=== PATIENT | male | born 1990 | race Caucasian/White ===

== ENCOUNTER 2024-12-13 13:56 | Emergency (ER) | payer OTHER, SELFPAY ==
[2024-12-13 14:06] VITALS: BP 144/94; PULSE 102; RESP 16; TEMP 36.8; O2SAT 98; BMI 26.4
--- OUTSIDE RECORDS SUMMARY | 2024-12-13 14:06 | XMS_ITS | Clinical Summary ---
Author Organization [facility] Address [address] [facility] Attn: Epic Prelude ADT AKIRA WOMACK [address] Care Team Providers Care Drum Builder Name Role Phone Alex Wick MD Primary Care Provider [phone] Allergies Active Allergy Reactions Criticality Noted Date Comments Penicillins Rash Low 09/28/2024 Medications propranoloL (INDERAL) 10 mg tablet Take 1 Tablet by mouth 3 times daily. 07/02/19 25 Active dextroamphetamine -amphetamine (ADDERALL) 15 mg tabletIndications :Attention deficit hyperactivity disorder (ADHD), combined type Take 1 Tablet (15 mg) by mouth daily. Max Daily Amount: 15 mg 28 Tablet 12/08/19 25 Active dextroamphetamine -amphetamine (ADDERALL) 15 mg tabletIndications :Attention deficit hyperactivity disorder (ADHD), combined type Take 1 Tablet (15 mg) by mouth daily. Max Daily Amount: 15 mg 28 Tablet 01/05/20 25 Active dextroamphetamine -amphetamine (ADDERALL) 15 mg tabletIndications :Attention deficit hyperactivity disorder (ADHD), combined type Take 1 Tablet (15 mg) by mouth daily. Max Daily Amount: 15 mg 28 Tablet 02/02/20 25 Active escitalopram oxalate (LEXAPRO) 20 mg tabletIndications :Moderate episode of recurrent major depressive disorder (CMS/HCC) Take 1 Tablet (20 mg) by mouth daily. 30 Tablet 2 12/01/19 25 Active escitalopram oxalate (LEXAPRO) 10 mg tabletIndications :Moderate episode of recurrent major depressive disorder (CMS/HCC) Take 1 Tablet (10 mg) by mouth daily. 30 Tablet 1 09/30/19 25 025 Discontinued methylphenidate ER 18 mg tablet,extended release 24 hrIndications:Att ention deficit hyperactivity disorder (ADHD), combined type Take 1 Tablet (18 mg) by mouth daily in the morning. Max Daily Amount: 18 mg 30 Tablet 11/03/19 25 025 Discontinued Active Problems Problem Noted Date Diagnosed Date CRYSTAL (generalized anxiety disorder) 11/30/2024 Attention deficit hyperactiv ity disorder (ADHD), combined type 09/28/2024 Moderate episode of recurrent major depressive d isorder 09/28/2024 Encounters Date Type Department Care Team Description 11/30/2024 11:20 AM CDT Office Visit [address] [phone] Alex Wick MD Attention deficit hyperactivity disorder (ADHD), combined type (Primary Dx); Moderate episode of recurrent major depressive disorder (CMS/HCC); CRYSTAL (generalized anxiety disorder) 11/24/2024 External Device Data [facility] ABSTRACTION Provider, Abstract 11/02/[address] [phone] Alex Wick MD Attention deficit hyperactivity disorder (ADHD), combined type 10/14/2024 External Device Data [facility] ABSTRACTION Provider, Abstract 10/13/2024 External Device Data [facility] ABSTRACTION Provider, Abstract 09/30/2024 Results Follow-Up [address] [phone] Sendy Harden FNP CBC WITH DIFFERENTIAL, COMPREHENSIVE METABOLIC PANEL, TSH, Additional followed-up results: 2 09/29/2024 External Device Data [facility] ABSTRACTION Provider, Abstract 09/29/2024 External Device Data [facility] ABSTRACTION Provider, Abstract 09/29/2024 External Device Data [facility] ABSTRACTION Provider, Abstract 09/28/2024 10:20 AM CDT Office Visit [address] [phone] Sendy Harden FNP Attention deficit hyperactivity disorder (ADHD), combined type (Primary Dx); Moderate episode of recurrent major depressive disorder (CMS/HCC); Influenza vaccination declined; Other fatigue 09/28/[address] [place] [address] Sendy Harden, MANAGER OF HOSPITAL Attention deficit hyperactivity disorder (ADHD), combined type (Primary Dx); Moderate episode of recurrent major depressive disorder (CMS/HCC) from Last 3 Months Immunizations Immunization Administration Dates Next Due (M-M-R II/PRIORIX)(12 MO UP) MEASLES, MUMPS AND RUBELLA VIRUS VACCINE, 0.5 ML IM/SUBCUT 08/06/1996,12/01/1992 (PNEUMOVAX 23)(50 YRS UP) PN EUMOCOCCAL POLYSACCHARIDE (PPV23) 0.5 ML, IM 08/07/2001 Dt Dtp Dtap Vaccine 08/06/1996, 3,02/04/1992,12/02,1991 HIB, Unspecified Formulation 12/01/1992, 02/04/1992,1991,09/02 Hepatitis B Vaccine 10/03/1995,03/07/1995,1994 IPV/OPV 08/06/1996, 3,1991,09/02 Family History Medical History Relation Name Comments Melanoma Father Other Mother Relation Name Status Comments Father Alive Mother Alive Social History Tobacco Use Types Packs/Day Years Used Date Smoking Tobacco: Never Smokeless Tobacco: Current Chew Tobacco Cessation:Ready to Q uit: Not Asked; Counseling Given: Not Answered Alcohol Use Standard Drinks/Week Comments Yes 10 (1 standard drink = 0.6 oz pu re alcohol) Sex and Gender Information Value Date Recorded Sex Assigned at Not on file Legal Sex Male 12:35 PM CHARGE WEIGHER Gender Identity Not on file Sexual Orientation Not on file Last Filed Vital Signs Vital Sign Reading Time Taken Comments Blood Pressure 124/86 11/30/2024 11:26 AM CDT Pulse 126 11/30/2024 11:26 AM CDT Temperature 36.2 C (97.1 F) 11/30/2024 11:26 AM CDT Respiratory Rate 14 11/30/2024 11:26 AM CDT Oxygen Saturation 96% 11/30/2024 11:26 AM CDT Inhaled Oxygen Concentration - - Weight 89.5 kg (197 lb 6.4 oz) 11/30/2024 11:26 AM CDT Height 181.6 cm (5' 11.5 ) 11/30/2024 11:26 AM C DT Body Mass Index 27.15 11/30/2024 11:26 AM CDT Plan of Treatment Upcoming Encounters Date Type Department Care Team (Late st Contact Info) Description 03/02/2025 9:40 AM CDT Office Visit [address] [phone] Sendy Harden, [facility] [address] [place] [phone] 06/07/2025 1:00 PM CHARGE WEIGHER Office Visit [facility] [address] [phone] Sendy Harden, [facility] [address] [place] [phone] Health Maintenance Due Date Last Done Comments DTAP/TDAP/TD VACCINES (6 - Tdap) 2002 08/06/1996, 12/01/1992, 02/04/1992, Additional history exists HPV VACCINES (1 - Male 3-dos e series) 2006 Preventative Visit- Commercial 05/27/2024 INFLUENZA VACCINE (#1) 2024 09/28/2024 HEPATITIS B VACCINES Completed 10/03/1995, 03/07/1995, 01/24/1995 Procedures Procedure Name Priority Date/Time Associated Diagnosis Comments IRON, TIBC, AND PERCENT SATURATION Routine 09/28/2024 11:15 AM CDT Other fatigue TESTOSTERONE FREE AND TOTAL Routine 09/28/2024 11:15 AM CDT Other fatigue TSH Routine 09/28/2024 11:15 AM CDT Moderate episode of recurrent major depressive disorder (CMS/HCC) Other fatigue COMPREHENSIVE METABOLIC PANEL Routine 09/28/2024 11:15 AM CDT Moderate episode of recurrent major depressive disorder (CMS/HCC) CBC WITH DIFFERENTIAL Routine 09/28/2024 11:15 AM CDT Moderate episode of recurrent major depressive disorder (CMS/HCC) from Last 3 Months Results * TESTOSTERONE FREE AND TOTAL (09/28/2024 11:15 AM CDT) TESTOSTERONE 518 250 - 1100 ng/dL [employer] Comment: For additional information, please refer to https://education.[employer]/faq/ITZ398 (This link is being provided for informational/educational purposes only.) (Note) This test was developed and its analytical performance characteristics have been determined by [facility]. It has not been cleared or approved by the FDA. This assay has been validated pursuant to the CLIA regulations and is used for clinical purposes. TESTOSTERONE FREE 76.6 35.0 - 155.0 pg/mL [employer] Comment: (Note) This test was developed and its analytical performance characteristics have been determined by [facility]. It has not been cleared or approved by the FDA. This assay has been validated pursuant to the CLIA regulations and is used for clinical purposes. [facility] [address] [place] [address],[address] [place] [address] Ron Chung MD, PhD FASTING:YES FASTING: YES Test Performed at: [facility] [address] [place] [address], [address] [place] [phone] Ron Chung MD,PhD Blood 09/28/2024 11:1 5 AM CDT 09/28/2024 11:16 AM CDT Sendy Harden MANAGER OF HOSPITAL CHEMISTRY ORDERABLES Rosita garcia Result [facility] [phone] [facility] [address] [place] [address], [address] [place] [phone] * IRON, TIBC, AND PERCENT SATURATION (09/28/2024 11:15 AM CDT) IRON 92 50 - 180 mcg/dL [facility] TIBC 353 250 - 425 mcg/dL (calc) [facility] IRON % SATURATION 26 20 - 48 % (calc) [facility] Comment: Test Performed at: [facility] [address] [facility] [place] [address] Paul Crespo MD Blood 09/28/2024 11:1 5 AM CDT 09/28/2024 11:16 AM CDT us Sendy Harden MANAGER OF HOSPITAL CHEMISTRY ORDERABLES Rosita l Result [facility] [phone] [facility] [address] [facility] [place] [address] * CBC WITH DIFFERENTIAL (09/28/2024 11:15 AM CDT) WBC 5.7 3.8 - 10.8 Thousand/u L [facility] RBC 5.38 4.20 - 5.80 Million/uL [facility] HEMOGLOBIN 16.6 13.2 - 17.1 g/dL [facility] HEMATOCRIT 48.8 38.5 - 50.0 % [facility] MCV 90.7 80.0 - 100.0 fL [facility] MCH 30.9 27.0 - 33.0 pg [facility] MCHC 34.0 32.0 - 36.0 g/dL [facility] Comment: For adults, a slight decrease in the calculated MCHC value (in the range of 30 to 32 g/dL) is most likely not clinically significant; however, it should be interpreted with caution in correlation with other red cell parameters and the patient's clinical condition. RDW 12.4 11.0 - 15.0 % [facility] PLATELETS 334 140 - 400 Thousand/u L [facility] MPV 10.5 7.5 - 12.5 fL [facility] NEUTROPHIL ABSOLUTE 3,637 1,500 - 7,800 cells/uL [facility] LYMPHOCYTE ABSOLUTE 1,448 850 - 3,900 cells/uL [facility] MONOCYTE ABSOLUTE 513 200 - 950 cells/uL [facility] EOSINOPHIL ABSOLUTE 80 15 - 500 cells/uL [facility] BASOPHILS ABSOLUTE 23 0 - 200 cells/uL [facility] NEUTROPHIL 63.8 % [facility] LYMPHOCYTES 25.4 % [facility] MONOCYTE 9.0 % [facility] EOSINOPHILS 1.4 % [facility] BASOPHILS 0.4 % [facility] Comment: FASTING:YES FASTING: YES Test Performed at: [facility] [place] [address] [place] [address] Paul Crespo MD Blood 09/28/2024 11:1 5 AM CDT 09/28/2024 11:16 AM CDT Sendy HUGHES HEMATOLOGY ORDERABLES Fin al Result Performing Organization Address City/[facility]/ZIP Co de Phone Number [facility] [phone] [facility] [phone] * TSH (09/28/2024 11:15 AM CDT) TSH 0.94 0.40 - 4.50 mIU/L [facility] Comment: FASTING:YES FASTING: YES Test Performed at: [facility] [address] [place] [phone] EmPriscilla Crespo MD Blood 09/28/2024 11:1 5 AM CDT 09/28/2024 11:16 AM CDT Sendy HUGHES CHEMISTRY ORDERABLES Rosita l Result Performing Organization Address City/[facility]/ZIP Co de Phone Number [facility] [phone] [facility] [address] [place] [phone] * COMPREHENSIVE METABOLIC PANEL (09/28/2024 11:15 AM CDT) GLUCOSE 86 65 - 99 mg/dL [facility] Comment: Fasting reference interval BUN 14 7 - 25 mg/dL [facility] CREATININE 0.64 0.60 - 1.26 mg/dL [facility] GFR 128 > OR = 60 mL/min/1. 73m2 [facility] BUN/CREAT RATIO SEE NOTE: 6 - 22 (calc) [facility] Comment: Not Reported: BUN and Creatinine are within reference range. SODIUM 138 135 - 146 mmol/L [facility] POTASSIUM 4.6 3.5 - 5.3 mmol/L [facility] CHLORIDE 103 98 - 110 mmol/L [facility] CO2 28 20 - 32 mmol/L [facility] CALCIUM 9.9 8.6 - 10.3 mg/dL [facility] TOTAL PROTEIN 7.3 6.1 - 8.1 g/dL [facility] ALBUMIN 5.1 3.6 - 5.1 g/dL [facility] GLOBULIN 2.2 1.9 - 3.7 g/dL (calc) [facility] ALBUMIN/GLOBULIN RATIO 2.3 1.0 - 2.5 (calc) [facility] BILIRUBIN TOTAL 0.5 0.2 - 1.2 mg/dL [facility] ALKALINE PHOSPHATASE 101 36 - 130 U/L [facility] AST 19 10 - 40 U/L [facility] ALT 35 9 - 46 U/L [facility] Comment: FASTING:YES FASTING: YES Test Performed at: [facility] [id number] [place] [address] [place] [address] Paul Crespo MD Blood 09/28/2024 11:1 5 AM CDT 09/28/2024 11:16 AM CDT Sendy Harden MANAGER OF HOSPITAL CHEMISTRY ORDERABLES Rosita l Result [facility] [phone] [facility] [address] [address] [phone] from Last 3 Months Insurance [facility] CHOICE [id number] Care Teams Drum Builder Relationship Specialty Start Date End Date Alex Wick MD [address] [place] [phone] PCP - General Family Practice 09/28/24
[2024-12-13 14:35] VITALS: BP 121/87
[2024-12-13 14:47] LABS: Hematocrit 44.1 % (37-53); Hemoglobin 15.90 g/dL (11.27-16.99); Mean Corpuscular HGB Conc 36.1 g/dL (30-55); Mean Corpuscular Hemoglobin 31.7 pg (27-33); Mean Corpuscular Volume 88.0 fl (82-101); Nucleated Red Blood Cells % 0 %; Platelet Count 350 10^3/cmm (157-399); Red Blood Count 5.01 10^6/uL (3.85-5.65); White Blood Count 11.63 10^3/uL (3.29-11.43)
[2024-12-13] MEDS: pantoprazole 40 mg SDV 80 MG IVP (14:54)
[2024-12-13 15:01] VITALS: BP 121/79
[2024-12-13 15:05] LABS: Alanine Aminotransferase 22 U/L (0-41); Albumin Level 4.6 g/dL (3.5-5.2); Alkaline Phosphatase 123 U/L (40-130); Anion Gap 18.0 (5-19); Aspartate Amino Transferase 17 U/L (0-40); Blood Urea Nitrogen 7 mg/dL (6-20); Calcium 9.6 mg/dL (8.5-10.5); Carbon Dioxide 24 mmol/L (22-29); Chloride 99 mmol/L (98-107); Creatinine Clr Calc Pharmacy 173.9608; Globulin 3.1 g/dL (1.3-4.6); Glucose 83 mg/dL (65-115); Osmolality Calculated 281 mOsm/kg (285-295); Potassium 4.0 mmol/L (3.5-5.1); Sodium 137 mmol/L (136-145); Total Protein 7.7 g/dL (6.6-8.7)
--- NOTE | 2024-12-13 18:36 | W.ED.GIBLEED ---
HPI - GI Bleed General: Chief complaint: GI Bleed Stated complaint: blood in stool Time Seen by Provider: 12/13/24 14:22 History of Present Illness: Duane Agrawal presents to the emergency department with a chief complaint of bloody diarrhea that started today. The patient reports a history of ongoing diarrhea for approximately 3 weeks, which he attributes to excessive alcohol consumption following a recent breakup. Today, the patient experienced two episodes of bright red blood in his stool, visible both in the toilet and on toilet paper. He denies any history of hemorrhoids. The patient also mentions feeling weak, which has caused him significant concern. Additionally, he reports experiencing burning pain in his upper stomach area, specifically in the esophageal region and along the midline of his chest. The patient discloses recent excessive alcohol consumption and an incident of Adderall misuse about 3 weeks ago, though he emphasizes it was not a suicide attempt. He expresses worry that his current symptoms may be related to this event. The patient denies vomiting blood. Mr. Agrawal mentions experiencing anxiety, which may be contributing to his current state. He also notes that the recent breakup has been a significant stressor in his life, potentially impacting his overall health and leading to increased alcohol consumption. Related Data Home Medications ?Medication ?Instructions ?Recorded ?Confirmed cholecalciferol (vitamin D3) 125 125 mcg PO DAILY 12/13/24 12/13/24 mcg (5,000 unit) tablet (Vitamin D3) dextroamphetamine-amphetamine 15 15 mg PO DAILY 12/13/24 12/13/24 mg tablet escitalopram oxalate 20 mg tablet 20 mg PO DAILY 12/13/24 12/13/24 magnesium glycinate 100 mg (as 100 mg PO DAILY 12/13/24 12/13/24 glycinate) tablet mecobalamin (vitamin B12) 1,000 1,000 mcg PO DAILY 12/13/24 12/13/24 mcg chewable tablet (B12 Active) Allergies Allergy/AdvReac Type Severity Reaction Status Date / Time Penicillins Allergy Unknown Verified 12/13/24 14:10 Review of Systems General: Reports: 10 or more systems reviewed and unremarkable except in HPI and below Physical Exam Const: COMMON NORMALS: no acute distress, patient oriented x3, healthy appearing, alert and well nourished HENMT: COMMON NORMALS: normocephalic HEAD & SCALP: normocephalic Eye: COMMON NORMALS: EOMs intact bilaterally Neck/C-Spine: COMMON NORMALS: full ROM and supple Resp: COMMON NORMALS: normal respiratory effort, No retractions and clear to auscultation bilaterally AUSCULTATION: clear to auscultation bilaterally Cardio: COMMON NORMALS: regular rate, regular rhythm, No gallops present (Cardio) and No murmurs present (Cardio) RATE: regular rate RHYTHM: regular rhythm GI: COMMON NORMALS: Soft to palpation and non-tender PALPATION: Yes Soft to palpation RECTAL EXAM: Yes visual inspection normal, Yes normal sphincter tone, Yes prostate normal, Yes heme negative stool, No hemorrhoids and No Anal fissure(s) present Extremity: GENERAL: Yes normal exam except as noted Neuro: COMMON NORMALS: patient oriented x3 SENSORIUM/ORIENTATION: Yes alert Skin: COMMON NORMALS: no rashes or lesions noted GENERAL SKIN EXAM: no rashes or lesions noted Course Vital Signs: Vital signs: Vital Signs Temperature 98.2 F 12/13/24 14:06 Pulse Rate 102 H 12/13/24 14:06 Respiratory Rate 16 12/13/24 14:06 Blood Pressure 121/79 12/13/24 15:01 Pulse Oximetry 98 12/13/24 14:06 Oxygen Delivery Me thod Room Air 12/13/24 14:06 MDM - GI Bleed Medical Decision Making Acute Bloody Diarrhea Assessment: Patient reports two episodes of bright red bloody diarrhea today, visible in the stool and on toilet paper. This is a new symptom, occurring in the context of 3 weeks of chronic diarrhea. Patient denies any history of hemorrhoids. The acute onset of hematochezia warrants further investigation to rule out potentially serious gastrointestinal conditions. Differential diagnoses include infectious colitis, inflammatory bowel disease, ischemic colitis, and lower gastrointestinal bleeding from other causes. - Perform rectal examination negative for occult stool - Hemoglobin was normal, BUN was also normal, coag studies normal - Encouraged the patient to follow-up with his primary care physician for further evaluation of hematochezia if it is persistent. Discussed return precautions and the patient was discharged home in stable condition. Lab Data 12/13/24 14:25 12/13/24 14:25 Laboratory Results WBC 11.63 10^3/uL (3.29-11.43) H 12/13/24 14:25 RBC 5.01 10^6/uL (3.85-5.65) 12/13/24 14:25 Hgb 15.90 g/dL (11.27-16.99) 12/13/24 14:25 Hct 44.1 % (37-53) 12/13/24 14:25 MCV 88.0 fl (82-101) 12/13/24 14:25 MCH 31.7 pg (27-33) 12/13/24 14: MCHC 36.1 g/dL (30-55) 12/13/24 14:25 RDW 11.8 % (12.1-15.1) L 12/13/24 14:25 Plt Count 350 10^3/cmm (157-399) 12/13/24 14: MPV 9.7 fL (7.4-10.4) 12/13/24 14:25 Neut % (Auto) 85.6 % 12/13/24 14:25 Lymph % (Auto) 7.7 % 12/13/24 14:25 Anderson % (Auto) 5.9 % 12/13/24 14:25 Eos % (Auto) 0.1 % 12/13/24 14:25 Baso % (Auto) 0.3 % 12/13/24: Neut # (Auto) 9.96 10^3/uL (1.8-7.7) H 12/13/24 14:25 Lymph # (Auto) 0.9 10^3/uL (0.8-4.8) 12/13/24 14:25 Anderson # (Auto) 0.7 10^3/uL (0.2-0.9) 12/13/24 14: Eos # (Auto) 0.0 10^3/uL (0.0-0.8) 12/13/24 14:25 Baso # (Auto) 0.0 10^3/uL (0.0-0.1) 12/13/24 14: Nucleated RBC % (auto) 0 % 12/13/24 14: Nucleated RBCs # 0.0 /100WBC 12/13/24 14:25 Sodium 137 mmol/L (136-145) 12/13/24 14:25 Potassium 4.0 mmol/L (3.5-5.1) 12/13/24 14:25 Chloride 99 mmol/L (98-107) 12/13/24 14:25 Carbon Dioxide 24 mmol/L (22-29) 12/13/24 14:25 Anion Gap 18.0 (5-19) 12/13/24 14:25 BUN 7 mg/dL (6-20) 12/13/24 14:25 Creatinine 0.7 mg/dL (0.7-1.2) 12/13/24 14:25 GFR Calculation 129.9 mL/min (90-130) 12/13/24 14:25 Glucose 83 mg/dL (65-115) 12/13/24 14:25 Calculated Osmolality 281 mOsm/kg (285-295) L 12/13/24 14:25 Calcium 9.6 mg/dL (8.5-10.5) 12/13/24 14:25 Total Bilirubin 0.4 mg/dL (0.15-1.2) 12/13/24 14:25 AST 17 U/L (0-40) 12/13/24 14:25 ALT 22 U/L (0-41) 12/13/24 14:25 Alkaline Phosphatase 123 U/L (40-130) 12/13/24 14:25 Total Protein 7.7 g/dL (6.6-8.7) 12/13/24 14:25 Albumin 4.6 g/dL (3.5-5.2) 12/13/24 14:25 Globulin 3.1 g/dL (1.3-4.6) 12/13/24 14:25 Blood Type O Positive 12/13/24 14:42 Rho(D) Type Rh positive 12/13/24 14:42 Antibody Screen Negative 12/13/24 14:42 No radiology studies performed this visit Discharge Plan Discharge Patient Disposition: Home Clinical Impression: Hematochezia Condition: Stable Prescriptions: No Action dextroamphetamine-amphetamine 15 mg tablet 15 mg PO DAILY escitalopram oxalate 20 mg tablet 20 mg PO DAILY magnesium glycinate 100 mg Tablet 100 mg PO DAILY cholecalciferol (vitamin D3) [Vitamin D3] 125 mcg (5,000 unit) Tablet 125 mcg PO DAILY mecobalamin (vitamin B12) [B12 Active] 1,000 mcg Tablet,Chewable 1,000 mcg PO DAILY Discharge Orders: Discharge ED (Routine); Ordered 12/13/24 Ordered By: Jose Law Discharge Diet: Advance as tolerated Discharge Activity: Resume usual activity Patient Instructions: Opioid Safety, Pain Management, Patient Portal & Charleen Instructions Activity Restrictions/Additional Instructions: Please follow-up with your primary care doctor for further evaluation of rectal bleeding. Return to the emergency department with any new or worsening symptoms. Print Language: Mauritian Coding Level of Care Code ED Balloon [employer] Printer for Westley Crowley
== END 2024-12-13 16:30 | disposition home or self-care (01) ==
PROVIDERS: Emergency Provider General Practice
DX: K92.1 Melena (principal)
CPT/HCPCS: 36415; 80053; 85025; 86850; 86900; 96374; 99284; J2470; J7030